=== PATIENT | male | born 1960 | race Caucasian/White ===

== ENCOUNTER 2025-09-23 07:34 | Outpatient (CLI) | payer MEDICARE, OTHER ==
[2025-09-23 08:30] LABS: Estimated GFR - POC 74.0
== END 2025-09-23 07:35 | disposition home or self-care (01) ==
LOC: SCSMRI 07:34
PROVIDERS: ATTEND Physician Assistant
DX: R97.20 Elevated prostate specific antigen [PSA] (principal)
CPT/HCPCS: 36415; 72197; 82565